=== PATIENT | female | born 1965 | race African-American/Black ===

== ENCOUNTER 2016-05-30 13:31 | Emergency (ER) | payer MEDICAID ==
[~2016-05-30] VITALS: Ht 157.5 cm; Wt 134.3 kg
[~2016-05-30 13:31] MED LIST: ASPIR 8181 MG ORAL; B COMPLEX1 EACH ORAL; COLACE100 MG ORAL; FERATE PO; GABAPENTIN300 MG ORAL; GUAIFENESIN-CO118 ML ORAL; LEVOTHYROXINE175 MCG ORAL; LIPITOR40 MG ORAL; LISINOPRIL10 MG ORAL; NORCO 5-325 TA1 EACH PO; OXYBUTYNIN CHLOR5 M1 PO; PERCOCET 5-3251 EACH PO; PRILOSEC20 MG ORAL; PROZAC40 MG ORAL; SOMA350 MG PO; VICODIN ES 7.51 EACH PO; ZITHROMAX250 MG ORAL
[2016-05-30 14:02] VITALS: BP 146/71
--- NOTE | 2016-05-30 14:04 | Emergency Room Report ---
History of Present Illness General Chief Complaint: Chest Pain Source: Patient Present Illness HPI Patient is a 51-year-old female who presented after increased cough and congestion. The patient gradual onset of symptoms. The patient prior history of hypertension. She states that she's had some voice changes. Patient states she gets sick with similar symptoms every year. She had some nonproductive cough. She reported having some l chest pain with coughing. She denies any fever. She denies any leg swelling.She reports taking ERMIAS inhibitor for her prior nephropathy. Allergies: Coded Allergies: No Known Allergies (Verified Allergy, Mild, 06/06/08) Patient History Past Medical History: see triage record Last Menstrual Period: Jan, 2017 Reviewed Nursing Documentation: PMH: Agreed, PSxH: Agreed Nursing Documentation-PMH Hx Cardiac Problems: Yes - irregular heart beat,CHRONIC PAIN - SIATICA, HYPOTHYROIDSM Hx Hypertension: No - high cholesterol Hx Pacemaker: No Hx Asthma: No Hx COPD: No Hx Diabetes: No Hx Cancer: No Hx Gastrointestinal Problems: Yes Hx Neurological Problems: No Hx Cerebrovascular Accident: No Hx Seizures: No Review of Systems All Other Systems: negative except mentioned in HPI Physical Exam Vital Signs Date Time Temp Pulse Resp B/P Pulse Ox O2 Delivery O2 Flow Rate FiO2 05/30/16 13:45 97.9 64 14 146/71 98 Room Air General Appearance: well appearing, no apparent distress, alert, GCS 15, obese Head: normocephalic, atraumatic ENT: hearing grossly normal, normal voice Neck: full range of motion, supple Respiratory: lungs clear, normal breath sounds, no respiratory distress, speaking full sentences Cardiovascular #1: normal peripheral pulses, regular rate, rhythm, no JVD Gastrointestinal: normal inspection, non tender, soft Musculoskeletal: normal inspection, back normal, digits/nails normal, no calf tenderness Neurologic: normal inspection, alert, responsive, 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 Patient's benign exam and does not appear to require any laboratory testing at this time. The patient showed no signs of angioedema. Patient prior history of hypertension.EKG interpreted by me showed normal sinus rhythm with a rate of [address] or T wave changes.A chest x-ray one view interpreted by me showed normal cardiac size without evident infiltrate or effusion. There is no evident pneumothorax and mediastinum was normal. Patient was offered laboratory testing and she declined. The patient was noted to have no improvement with albuterol treatment. The patient is advised to take ibuprofen for pain. Patient does not appear to have any acute risk factors for PE. The patient's history is consistent with a viral infection. She is given a prescription for cough medication The patient is advised to follow up with primary care doctor in 1-2 days. Patient is advised to return if any worsening condition or if any changes in status that are concerning. EKG Diagnostic Results Rate: normal Rhythm: NSR ST Segments: no acute changes Rhythm Strip Diag. Results EP Interpretation: yes Rhythm: NSR, no PVC's, no ectopy Chest X-Ray Diagnostic Results EP Interpretation: Yes Findings: no consolidation, no effusion, no pneumothorax, no acute cardiopulmonary disease Number of Views: 1 Last Vital Signs Date Time Temp Pulse Resp B/P Pulse Ox O2 Delivery O2 Flow Rate FiO2 05/30/16 13:45 97.9 64 14 146/71 98 Room Air Status: improved Disposition: HOME, SELF-CARE Condition: Stable Scripts D-Methorphan Hb/Prometh Hcl* (PROMETHAZINE-DM SYRUP*) 118 Ml Syrup 5 ML ORAL Q6H Y for For Cough, #100 ML 0 Refills Prov: Amilcar Galan 05/30/16 Amilcar Galan May 30, 2016 14:04
[2016-05-30] MEDS ORDERED: DuoNeb 0.5-3(2.5)mg/3ml neb HHN ONE (14:15)
[2016-05-30] MEDS ORDERED: PROMETHAZINE-D118 ML ORAL (14:31)
[2016-05-30 14:34] VITALS: BP 139/76
[2016-05-30 14:42] VITALS: BP 139/76
--- NOTE | 2016-05-31 10:33 | Diagnostic Imaging Report ---
Indications: Shortness of breath Technique: Portable AP chest Findings: Comparison: 10/26/12 Motion artifact, suboptimal image quality due to body habitus limit evaluation. Cardiac silhouette remains enlarged. Ulnar vasculature remains within normal limits. Visualized portions of lungs and pleura remain clear. No abnormal mediastinal widening. IMPRESSION: No evidence of acute cardiopulmonary disease, limited as described, unchanged. Stable cardiomegaly
--- NOTE | 2016-06-02 03:10 | Cardiology Report ---
APPROVED REPORT EKG Measurement Heart [id number] Normal sinus rhythm Normal ECG
== END 2016-05-30 15:04 | disposition home or self-care (01) ==
LOC: EMR 14:09
DX: J40 Bronchitis, not specified as acute or chronic (principal); J06.9 Acute upper respiratory infection, unspecified; E78.00 Pure hypercholesterolemia, unspecified; G89.29 Other chronic pain; E03.9 Hypothyroidism, unspecified
CPT/HCPCS: 71010; 93005; 94644; 99283; J7620

== ENCOUNTER 2016-06-21 20:53 | Emergency (ER) | payer MEDICAID ==
[~2016-06-21] VITALS: Ht 157.5 cm; Wt 134.3 kg
[~2016-06-21 20:53] MED LIST changes: +PROMETHAZINE-D118 ML ORAL
[2016-06-21 21:10] VITALS: BP 160/80
--- NOTE | 2016-06-21 21:40 | Emergency Room Report ---
History of Present Illness General Chief Complaint: Female Urogenital Problems Source: Patient Present Illness [facility] The patient presents with vaginal bleeding and also some suprapubic pain. This for 17 days and she is passing clots. She feels somewhat dizzy when she stands up. Denies any fevers. The patient had similar in April and was admitted had an ultrasound showed thickening of her uterus. Dr. Cho did a D&C at that time. She's had no period until 17 days ago. She denies having a fibroid. She did not take her medications for pain and suffers from sciatica. She has no dysuria. The back pain is 8/10, aching and chronic. It radiates to her leg. There is no fever, chills, NVD, chest pain, palpitations, dyspnea. She is not depressed at this time. No diabetes. She does suffer from anemia. Allergies: Coded Allergies: No Known Allergies (Verified Allergy, Mild, 06/06/08) Patient History Past Medical History: see triage record Past Surgical History: other - recent d and c Social History: Denies: smoking Social History Narrative here with friend Last Menstrual Period: 06/04/16 Now: No Reviewed Nursing Documentation: PMH: Agreed, PSxH: Agreed Nursing Documentation-PMH Past Medical History: No History, Except For Hx Cardiac Problems: Yes - irregular heart beat,CHRONIC PAIN - SIATICA, HYPOTHYROIDSM Hx Hypertension: No - high cholesterol Hx Pacemaker: No Hx Asthma: No Hx COPD: No Hx Diabetes: No Hx Cancer: No Hx Gastrointestinal Problems: Yes Hx Neurological Problems: No Hx Cerebrovascular Accident: No Hx Seizures: No Review of Systems All Other Systems: negative except mentioned in HPI Physical Exam Vital Signs Date Time Temp Pulse Resp B/P Pulse Ox O2 Delivery O2 Flow Rate FiO2 06/21/16 21:09 98.4 80 16 160/80 100 Room Air Sp02 EP Interpretation: reviewed, normal General Appearance: well appearing, no apparent distress, GCS 15, obese Head: normocephalic, atraumatic Eyes: bilateral eye PERRL, bilateral eye normal inspection ENT: moist mucus membranes Neck: supple Respiratory: chest non-tender, lungs clear, normal breath sounds Cardiovascular #1: regular rate, rhythm Cardiovascular #2: 2+ radial (R) Gastrointestinal: normal inspection, normal bowel sounds, non tender, no mass, non-distended, overweight Genitourinary: no CVA tenderness, other - partially full tampon - no clots Musculoskeletal: gait/station normal, normal range of motion, other - minimal paraspinous spasm Neurologic: alert, oriented x3, grossly normal Psychiatric: anxious Skin: normal inspection, warm/dry Medical Decision Making Diagnostic Impression: Primary Impression: Menorrhagia Qualified Codes: N92.1 - Excessive and frequent menstruation with irregular cycle Additional Impression: Chronic back pain Qualified Codes: M54.40 - Lumbago with sciatica, unspecified side; G89.29 - Other chronic pain ER Course Patient with heavy vaginal bleeding which is irregular. Some sy of significant anemia. Ddx: fibroid, , hormonal imbalance. Recent D and C. Urgent evaluation for sever anemia and source of bleeding. Labs, ultrasound. Patient treated with IV hydration and analgesia. H/H not critically low. U/S with probable fibroid (difficult exam). Discussed with pts PMD. Suggested provera. Patient improved with treatment. Patient stable for outpatient observation and treatment. Laboratory Tests Test 06/21/16 21:53 White Blood Count 10.5 K/UL (4.8-10.8) Red Blood Count 4.26 M/UL (4.20-5.40) Hemoglobin 9.7 G/DL (12.0-16.0) L Hematocrit 32.2 % (37.0-47.0) L Mean Corpuscular Volume 76 FL (80-99) L Mean Corpuscular Hemoglobin 22.8 PG (27.0-31.0) L Mean Corpuscular Hemoglobin Concent 30.2 G/DL (32.0-36.0) L Red Cell Distribution Width 14.2 % (11.6-14.8) Platelet Count 298 K/UL (150-450) Mean Platelet Volume 6.6 FL (6.5-10.1) Neutrophils (%) (Auto) 72.8 % (45.0-75.0) Lymphocytes (%) (Auto) 19.5 % (20.0-45.0) L Monocytes (%) (Auto) 5.2 % (1.0-10.0) Eosinophils (%) (Auto) 1.7 % (0.0-3.0) Basophils (%) (Auto) 0.9 % (0.0-2.0) Urine Color Red Urine Appearance Turbid Urine pH 6.5 (4.5-8.0) Urine Specific [place] 1.015 (1.005-1.035) Urine Protein 4+ (NEGATIVE) H Urine Glucose (UA) Negative (NEGATIVE) Urine Ketones Negative (NEGATIVE) Urine Occult Blood 5+ (NEGATIVE) H Urine Nitrite Negative (NEGATIVE) Urine Bilirubin Negative (NEGATIVE) Urine Urobilinogen 4 MG/DL (0.0-1.0) H Urine Leukocyte Esterase 1+ (NEGATIVE) H Urine RBC Tntc /HPF (0 - 2) H Urine WBC 0 /HPF (0 - 2) Urine Squamous Epithelial Cells None /LPF (NONE/OCC) Urine Bacteria Few /HPF (NONE) Urine HCG, Qualitative Negative Sodium Level 139 mEQ/L (135-145) Potassium Level 3.7 mEQ/L (3.4-4.9) Chloride Level 100 mEQ/L (98-107) Carbon Dioxide Level 23 mEQ/L (20-30) Anion Gap 16 (5-15) H Blood Urea Nitrogen 12 mg/dL (7-23) Creatinine 0.8 mg/dL (0.5-0.9) Estimate Glomerular Filtration Rate > 60 mL/min (>60) Glucose Level 138 mg/dL (74-106) H Calcium Level 8.9 mg/dL (8.6-10.2) Total Bilirubin < 0.2 mg/dL (0.0-1.2) Aspartate Amino Transferase (AST) 12 U/L (5-40) Alanine Aminotransferase (ALT) 8 U/L (3-33) Alkaline Phosphatase 70 U/L (35-104) Total Protein 7.8 g/dL (6.6-8.7) Albumin 3.6 g/dL (3.5-5.2) Globulin 4.2 g/dL Albumin/Globulin Ratio 0.8 (1.0-2.7) L Lipase 31 U/L (< 60) CT/MRI/US Diagnostic Results CT/MRI/US Diagnostic Results : Imaging Test Ordered: vaginal Impression possible fibroid - extremely limited exam due to habitus Last Vital Signs Date Time Temp Pulse Resp B/P Pulse Ox O2 Delivery O2 Flow Rate FiO2 06/21/16 21:09 98.4 80 16 160/80 100 Room Air Status: improved Disposition: HOME, SELF-CARE Condition: Improved Scripts Vit Comb.10/Iron/Fa (VITAFOL-OB CAPLET) 1 Each Tablet 1 EACH PO DAILY, #30 TAB Prov: Mono Bowen M.D. 06/22/16 Medroxyprogesterone Acet* (PROVERA*) 10 Mg Tablet 10 MG ORAL BID, #10 TAB 0 Refills Prov: Mono Bowen M.D. 06/22/16 Mono Bowen M.D. Jun 21, 2016 21:40
[2016-06-21] MEDS ORDERED: Morphine Sulfate 2mg/ml Inj IVP ONE (21:45)
[2016-06-21] MEDS ORDERED: Ketorolac 30mg Inj IV ONE (21:45)
[2016-06-21] MEDS ORDERED: Methocarbamol 500mg tab ORAL ONE (21:45)
[2016-06-21 22:04] LABS: BASOPHILS % (AUTO) 0.9 % (0.0-2.0); EOSINOPHILS % (AUTO) 1.7 % (0.0-3.0); LYMPHOCYTES % (AUTO) 19.5 % (20.0-45.0); MEAN CORPUSCULAR HEMOGLOBIN 22.8 PG (27.0-31.0); MEAN CORPUSCULAR HGB CONC 30.2 G/DL (32.0-36.0); MEAN CORPUSCULAR VOLUME 76 FL (80-99); MEAN PLATELET VOLUME 6.6 FL (6.5-10.1); MONOCYTES % (AUTO) 5.2 % (1.0-10.0); NEUTROPHILS % (AUTO) 72.8 % (45.0-75.0); PLATELET COUNT 298 K/UL (150-450); RED BLOOD COUNT 4.26 M/UL (4.20-5.40); RED CELL DISTRIBUTION WIDTH 14.2 % (11.6-14.8); WHITE BLOOD COUNT 10.5 K/UL (4.8-10.8)
[2016-06-21 22:21] LABS: APPEARANCE,URINE TURBID; KETONES,URINE NEGATIVE (NEGATIVE); LEUKOCYTE ESTERASE ,URINE 1+ (NEGATIVE); NITRITE,URINE NEGATIVE (NEGATIVE); PH,URINE 6.5 (4.5-8.0); PROTEIN,URINE 4+ (NEGATIVE); UROBILINOGEN,URINE 4 MG/DL (0.0-1.0)
[2016-06-21 22:23] LABS: ALANINE AMINOTRANSFERASE 8 U/L (3-33); ALBUMIN/GLOBULIN RATIO 0.8 (1.0-2.7); ANION GAP 16 (5-15); ASPARTATE AMINO TRANSFERASE 12 U/L (5-40); CALCIUM 8.9 mg/dL (8.6-10.2); CARBON DIOXIDE 23 mEQ/L (20-30); CHLORIDE 100 mEQ/L (98-107); CREATININE 0.8 mg/dL (0.5-0.9); GLOMERULAR FILTRATION RATE > 60 mL/min (>60); HEMOLYSIS 0; LIPASE 31 U/L (< 60); POTASSIUM 3.7 mEQ/L (3.4-4.9); SODIUM 139 mEQ/L (135-145); TOTAL PROTEIN 7.8 g/dL (6.6-8.7)
[2016-06-21 22:28] LABS: RBC,URINE TNTC /HPF (0 - 2)
[2016-06-21 22:29] LABS: BACTERIA,URINE FEW /HPF; WBC,URINE 0 /HPF (0 - 2)
[2016-06-22] MEDS ORDERED: medroxyPROGESTERone 10mg tab ORAL STA (01:12)
[2016-06-22] MEDS ORDERED: VITAFOL-OB CAP1 EACH PO (01:24)
[2016-06-22] MEDS ORDERED: PROVERA10 MG ORAL (01:24)
[2016-06-22 01:40] VITALS: BP_SYST 143; BP_SYST 160; BP_DIAS 78; BP_DIAS 80
--- NOTE | 2016-06-22 10:45 | Diagnostic Imaging Report ---
Indication: Vaginal bleeding Technique: Transabdominal and transvaginal images Comparison: 12/21/2005 Findings: Exam is limited due to patient body habitus. Uterus measures 6.6 cm length by 2.9 cm AP. There is a neither ovary could be demonstrated. The endometrial stripe is not well demonstrated. Cervical nabothian cysts are noted. Impression: Very limited exam Nonvisualization of the ovaries. No gross adnexal mass or free fluid Incidental finding cervical nabothian cysts
== END 2016-06-22 01:42 | disposition home or self-care (01) ==
LOC: EMR 22:20
DX: N92.0 Excessive and frequent menstruation with regular cycle (principal); G89.29 Other chronic pain; R42 Dizziness and giddiness; M54.30 Sciatica, unspecified side; E78.00 Pure hypercholesterolemia, unspecified; E03.9 Hypothyroidism, unspecified
CPT/HCPCS: 36415; 76830; 76856; 80053; 81003; 81025; 83690; 85025; 86850; 86900; 86901; 96374; 96375; 99284; J1885; J2270; J2405

== ENCOUNTER 2017-01-08 19:27 | Emergency (ER) | payer MEDICAID ==
[~2017-01-08] VITALS: Ht 157.5 cm; Wt 136.1 kg
[~2017-01-08 19:27] MED LIST changes: +PROVERA10 MG ORAL; +VITAFOL-OB CAP1 EACH PO
[2017-01-08 20:00] VITALS: BP 148/78
[2017-01-08] MEDS ORDERED: ARTIFICIAL TEAR15 ML BOTH EYES (20:28)
[2017-01-08] MEDS ORDERED: CLARITIN-D 241 EACH PO (20:28)
[2017-01-08] MEDS ORDERED: FLONASE ALLERG9.9 ML NS (20:28)
[2017-01-08 20:40] VITALS: BP 148/78
--- NOTE | 2017-01-08 21:02 | Emergency Room Report ---
History of Present Illness General Chief Complaint: Eye Problems Source: Patient Present Illness HPI The patient is a 51-year-old female with a history of environmental allergies presenting for burning and itching of both eyes which began 3 days prior. She is also complaining of nasal congestion. Pain is a 3/10 burning sensation to both eyes. Does not radiate. She has also been having increased tearing from both eyes. She denies any other symptoms including nausea, vomiting, fever, chills, cough Allergies: Coded Allergies: No Known Allergies (Verified Allergy, Mild, 06/06/08) Patient History Past Medical History: see triage record Pertinent Family History: none Last Menstrual Period: 01/07/17 Now: No Reviewed Nursing Documentation: PMH: Agreed, PSxH: Agreed Nursing Documentation-PMH Hx Cardiac Problems: Yes - irregular heart beat,CHRONIC PAIN - SIATICA, HYPOTHYROIDSM Hx Hypertension: No - high cholesterol Hx Pacemaker: No Hx Asthma: No Hx COPD: No Hx Diabetes: No Hx Cancer: No Hx Gastrointestinal Problems: Yes Hx Neurological Problems: Yes - Chronic Nerve Pain Hx Cerebrovascular Accident: No Hx Seizures: No Review of Systems All Other Systems: negative except mentioned in HPI Physical Exam Vital Signs Date Time Temp Pulse Resp B/P (MAP) Pulse Ox O2 Delivery O2 Flow Rate FiO2 01/08/17 19:52 98.6 83 16 148/78 96 Room Air Sp02 EP Interpretation: reviewed, normal General Appearance: no apparent distress, alert, GCS 15, non-toxic Head: normocephalic, atraumatic Eyes: bilateral eye PERRL, bilateral eye EOMI, bilateral eye Scleral Injection ENT: hearing grossly normal, normal pharynx, no angioedema, normal voice, uvula midline, nasal congestion Neck: full range of motion, supple/symm/no masses Respiratory: chest non-tender, lungs clear, normal breath sounds, speaking full sentences Musculoskeletal: back normal, gait/station normal, normal range of motion, non- tender Neurologic: alert, oriented x3, responsive, motor strength/tone normal, sensory intact, speech normal Psychiatric: judgement/insight normal, memory normal, mood/affect normal, no suicidal/homicidal ideation Skin: normal color, no rash, warm/dry, well hydrated Medical Decision Making PA Attestation Dr. Galan is my supervising physician. Patient management was discussed with my supervising physician Diagnostic Impression: Primary Impression: Allergic conjunctivitis Qualified Codes: H10.13 - Acute atopic conjunctivitis, bilateral Additional Impression: Environmental allergies ER Course The patient is a 51-year-old female presenting for eye itching and redness Differential diagnoses considered but not limited to allergic conjunctivitis, bacterial conjunctivitis, viral conjunctivitis, blepharitiis, allergies Physical exam: Afebrile. No apparent distress HEENT exam reveals bilateral conjunctival injection with tearing. No crusting of the eyelids. No discharge. There is nasal congestion Otherwise exam is unremarkable The patient be discharged with prescription for Claritin, Flonase, and artificial tears. ER precautions are given Last Vital Signs Date Time Temp Pulse Resp B/P (MAP) Pulse Ox O2 Delivery O2 Flow Rate FiO2 01/08/17 20:00 98.6 16 148/78 96 Room Air 01/08/17 19:52 83 Status: improved Disposition: HOME, SELF-CARE Condition: Improved Scripts Dextran 70/Hypromellose (ARTIFICIAL TEARS EYE DROPS*) 15 Ml Drops 1 DROP BOTH EYES PRN, #15 ML 0 Refills Prov: KATELYNN NAJERA 01/08/17 Fluticasone Propionate (Flonase Allergy Relief) 9.9 Ml [place].susp 1 ML NS DAILY, #10 ML Prov: KATELYNN NAJERA.A. 01/08/17 Loratadine/Pseudoephedrine (CLARITIN-D 24 HOUR TABLET) 1 Each Tab.er.24h 1 TAB PO DAILY, #30 TAB Prov: KATELYNN NAJERA.A. 01/08/17 Referrals: NON PHYSICIAN (PCP) Patient Instructions: Allergies Additional Instructions: I discussed my findings with the patient. All questions and concerns have been answered. Treatment and medication compliance have been addressed. I advised the patient that they need to follow up with PMD in 3-5 days. Return to ED if symptoms worsen, new symptoms arise, or if needed for any reason. Patient verbalized understanding of discharge instructions. KATELYNN NAJERA Jan 08, 2017 21:02
== END 2017-01-08 20:45 | disposition home or self-care (01) ==
LOC: EMR 20:40
DX: H10.13 Acute atopic conjunctivitis, bilateral (principal); E03.9 Hypothyroidism, unspecified; G89.29 Other chronic pain
CPT/HCPCS: 99284

== ENCOUNTER 2017-05-19 14:59 | Emergency (ER) | payer MEDICAID ==
[~2017-05-19] VITALS: Ht 157.5 cm; Wt 145.1 kg
[~2017-05-19 14:59] MED LIST changes: +ARTIFICIAL TEAR15 ML BOTH EYES; +CLARITIN-D 241 EACH PO; +FLONASE ALLERG9.9 ML NS
[2017-05-19] MEDS ORDERED: Lidocaine 1% 10mg/ml/Epi 0.005mg/ml 30ml vial INJ ONE (16:00)
[2017-05-19] MEDS ORDERED: BACTRIM DS TAB1 EAC1 ORAL (16:57)
[2017-05-19] MEDS ORDERED: CEPHALEXIN500 MG ORAL (16:57)
[2017-05-19] MEDS ORDERED: IBUPROFEN600 MG ORAL (16:57)
[2017-05-19 17:08] VITALS: BP 152/76
[2017-05-19 17:09] VITALS: BP 152/76
--- NOTE | 2017-05-19 18:10 | Emergency Room Report ---
History of Present Illness General Chief Complaint: Skin Rash/Abscess Source: Patient Present Illness HPI The patient is a 52-year-old female presenting for 2 complaints including left shoulder pain and possible infection of her right thigh. She states that she fell 2 months ago onto her left shoulder and did not seek any medical attention. She states the pain has continued and is a 6/10 dull ache. Worse with movement. She states that it is difficult for her to raise her left arm. She denies previous injury to the area. She denies any numbness or tingling. She noticed a bump on her right inner thigh 3 days ago. She states that this has been growing in size. It is tender described as a 5/10 dull ache. Worse with touch. She denies other symptoms including fever, chills, numbness or tingling Allergies: Coded Allergies: No Known Allergies (Verified Allergy, Mild, 06/06/08) Patient History Past Medical History: see triage record Pertinent Family History: none Last Menstrual Period: 04/18/17 Now: No Reviewed Nursing Documentation: PMH: Agreed, PSxH: Agreed Nursing Documentation-PMH Hx Hypertension: No - high cholesterol Hx Pacemaker: No Hx Asthma: No Hx COPD: No Hx Diabetes: No Hx Cancer: No Hx Gastrointestinal Problems: Yes Hx Neurological Problems: Yes - Chronic Nerve Pain Hx Cerebrovascular Accident: No Hx Seizures: No Review of Systems All Other Systems: negative except mentioned in HPI Physical Exam Vital Signs Date Time Temp Pulse Resp B/P (MAP) Pulse Ox O2 Delivery O2 Flow Rate FiO2 05/19/17 15:16 97.7 75 18 149/83 96 Room Air Sp02 EP Interpretation: reviewed, normal General Appearance: no apparent distress, alert, GCS 15, non-toxic Head: normocephalic, atraumatic Eyes: bilateral eye normal inspection, bilateral eye PERRL ENT: hearing grossly normal, normal pharynx, no angioedema, normal voice Neck: full range of motion, supple/symm/no masses Respiratory: chest non-tender, lungs clear, normal breath sounds, speaking full sentences Musculoskeletal: back normal, gait/station normal, normal range of motion, decreased range of motion - L shoulder unable to flex past 90, tender - TTP to the L anterior and lateral deltoids Neurologic: alert, oriented x3, responsive, motor strength/tone normal, sensory intact, speech normal Psychiatric: judgement/insight normal, memory normal, mood/affect normal, no suicidal/homicidal ideation Skin: rash - R medial thigh has 2cm indurated, tender lesion with central fluctuance Lymphatic: no adenopathy Procedures Incision and Drainage Incision and Drainage : Consent: Verbal Site: R thigh Blade Size: 11 I & D Procedure: betadine prep, sterile drapes applied Wound Location: lower extremity Wound's Depth, Shape: superficial Wound Length (cm): 1 Wound Explored: clean Irrigated w/ Saline (ccs): 50 Anesthesia: 1% Lidocaine, Lidocaine w/ Epi Volume Anesthetic (ccs): 3 Splint Applied?: No Sling Applied?: No Patient Tolerated: Well Complications: None Medical Decision Making PA Attestation Dr. Galan is my supervising physician. Patient management was discussed with my supervising physician Diagnostic Impression: Primary Impression: Abscess Additional Impression: Shoulder pain, left Qualified Codes: M25.512 - Pain in left shoulder ER Course The patient is a 52-year-old female presenting for 2 complaints including left shoulder pain and possible infection of her right thigh Ddx considered include but not limited to sprain/strain, fracture, contusion Differential diagnoses considered but not limited to: abscess, cellulitis, insect bite PE: afebrile. NAD R medial thigh has 2cm indurated, tender lesion with central fluctuance Left shoulder: Unable to flex past 90. Tender to palpation over anterior and lateral deltoids. No deformity. No ecchymosis. Full active range of motion of the elbow and hand is intact X-ray of the left shoulder unremarkable Betadine prep was used to clean the skin and surrounding area. One percent lidocaine without epinephrine was used to anesthetize the are of planned incision. A #11 blade was used to make an incision in the central area of fluctuance approximately 1/3 the size of the diameter of the abscess. Once the incision was made, purulent material was expressed with blood. Blunt dissection was then used to release loculations and expressed more purulent material. Once only blood appeared to be expressed from the incision, normal saline was used to irrigate the inside of the abscess. The wound was then cleaned and sterile dressing applied. The patient is given first dose of antibiotics here and will be given prescription for her abscess. She was told that she will likely need an MRI for left shoulder pain as it has now been 2 months since the injury ER precautions given Other X-Ray Diagnostic Results Other X-Ray Diagnostic Results : X-Ray ordered: L shoulder # of Views/Limited Vs Complete: 3 View Indication: Pain EP Interpretation: Yes SHELLEY Xray: Interpretation reviewed, by supervising MD, and agrees with findings. Interpretation: no dislocation, no soft tissue swelling, no fractures Impression: No acute disease Electronically Signed by: Leander Najera PA-C Last Vital Signs Date Time Temp Pulse Resp B/P (MAP) Pulse Ox O2 Delivery O2 Flow Rate FiO2 05/19/17 17:09 97.7 72 18 152/76 97 Room Air Status: improved Disposition: HOME, SELF-CARE Condition: Improved Scripts Ibuprofen* (MOTRIN*) 600 Mg Tablet 600 MG ORAL Q8H Y for For Pain, #30 TAB 0 Refills Prov: LEANDER NAJERA.A. 05/19/17 Trimethoprim/Sulfamethoxazole 160/800* (BACTRIM DS TABLET*) 1 Each Tablet 1 TAB ORAL TWICE A DAY, #14 TAB Prov: LEANDER NAJERA.A. 05/19/17 Cephalexin* (KEFLEX*) 500 Mg Capsule 500 MG ORAL EVERY 12 HOURS, #14 CAP 0 Refills Prov: LEANDER NAJERA P.A. 05/19/17 Referrals: NON PHYSICIAN (PCP) Patient Instructions: Shoulder Pain, Abscess Additional Instructions: I discussed my findings with the patient. All questions and concerns have been answered. Treatment and medication compliance have been addressed. I advised the patient that they need to follow up with PMD in 3-5 days. Return to ED if symptoms worsen, new symptoms arise, or if needed for any reason. Patient verbalized understanding of discharge instructions. LEANDER NAJERA May 19, 2017 18:10
--- NOTE | 2017-05-20 10:42 | Diagnostic Imaging Report ---
Indication: left shoulder pain Findings: 3 views of the left shoulder were obtained. Alignment of the left shoulder is normal. No acute fracture is identified. Soft tissues are unremarkable. Impression: No acute injury
== END 2017-05-19 17:12 | disposition home or self-care (01) ==
LOC: EMR 15:20
DX: L02.415 Cutaneous abscess of right lower limb (principal); M25.512 Pain in left shoulder
CPT/HCPCS: 10060; 99284

== ENCOUNTER 2017-09-25 13:30 | Emergency (ER) | payer MEDICAID ==
[~2017-09-25] VITALS: Ht 157.5 cm; Wt 142.9 kg
[~2017-09-25 13:30] MED LIST changes: +BACTRIM DS TAB1 EAC1 ORAL; +CEPHALEXIN500 MG ORAL; +IBUPROFEN600 MG ORAL
[2017-09-25 13:43] VITALS: BP 139/83
[2017-09-25] MEDS ORDERED: Ketorolac 60mg Inj IM ONE (14:00)
--- NOTE | 2017-09-25 14:31 | Emergency Room Report ---
History of Present Illness General Chief Complaint: Multiple Trauma/Fall Source: Patient Present Illness HPI 52-year-old female presents emergency department complaining of 10 out of 10 in severity localized left hip, left upper gluteal as well as left knee pain status post mechanical fall last night patient denies dizziness she denies hitting her head she denies midline neck or back pain. She denies loss of consciousness. Denies numbness tingling or loss of sensation or gross motor movements of the extremities, incontinence of bowel or bladder. Denies CP, Palpitations, LOC, AMS, dizziness, Changes in Vision, weakness or a sudden severe headache. Patient reports past medical history of anemia and sciatica. Allergies: Coded Allergies: No Known Allergies (Verified Allergy, Mild, 06/06/08) Patient History Past Medical History: see triage record, other - sciatica hx, anemia hx Pertinent Family History: none Last Menstrual Period: 09/04/17 Nursing Documentation-PMH Hx Hypertension: No - high cholesterol Hx Pacemaker: No Hx Asthma: No Hx COPD: No Hx Diabetes: No Hx Cancer: No Hx Gastrointestinal Problems: Yes Hx Neurological Problems: Yes - Chronic Nerve Pain Hx Cerebrovascular Accident: No Hx Seizures: No Review of Systems All Other Systems: negative except mentioned in HPI Physical Exam Vital Signs Date Time Temp Pulse Resp B/P (MAP) Pulse Ox O2 Delivery O2 Flow Rate FiO2 09/25/17 13:39 98.0 92 19 139/83 95 Room Air 98.1 Medical Decision Making PA Attestation Dr. Perez is my supervising Physician whom patient management has been discussed with. Diagnostic Impression: Primary Impression: Contusion, hip and thigh Qualified Codes: S70.02XA - Contusion of left hip, initial encounter; S70.12XA - Contusion of left thigh, initial encounter Additional Impressions: Contusion of knee, right Qualified Codes: S80.01XA - Contusion of right knee, initial encounter Knee pain, left Qualified Codes: M25.562 - Pain in left knee Sciatic nerve pain Qualified Codes: M54.32 - Sciatica, left side ER Course 52-year-old female presents emergency department complaining of 10 out of 10 in severity localized left hip, left upper gluteal as well as left knee pain status post mechanical fall last night patient denies dizziness she denies hitting her head she denies midline neck or back pain. She denies loss of consciousness. Denies numbness tingling or loss of sensation or gross motor movements of the extremities, incontinence of bowel or bladder. Denies CP, Palpitations, LOC, AMS, dizziness, Changes in Vision, weakness or a sudden severe headache. Patient reports past medical history of anemia and sciatica. Ddx considered but are not limited to Fracture, dislocation, contusion, Sprain/ Strain/Spasm, Vital signs: are WNL, pt. is afebrile H&PE are most consistent with musculoskeletal injury will perform imaging to r/ o fractures/dislocations. ORDERS: - X-ray Left knee and Left Hip - negative for fx, Dislocation, or significant soft tissue injury, per preliminary read in ED, and signed by SHELLEY Parsons, my supervising physician has reviewed, and agrees with my interpretation. ED INTERVENTIONS: - Toradol IM DISCHARGE: At this time pt. is stable for d/c to home. Will provide printed patient care instructions, and any necessary prescriptions. Care plan and follow up instructions have been discussed with the patient prior to discharge. Other X-Ray Diagnostic Results Other X-Ray Diagnostic Results #1: X-Ray ordered: Left Knee # of Views/Limited Vs Complete: 3 View Indication: Pain EP Interpretation: Yes SHELLEY Xray: Interpretation reviewed, by supervising MD, and agrees with findings. Interpretation: no dislocation, no soft tissue swelling, no fractures, other - arthritic changes ntoed Impression: No acute disease Electronically Signed by: Emani Parsons PA-C Other X-Ray Diagnostic Results #2: X-Ray ordered: Left Hip 2 views # of Views/Limited Vs Complete: 2 View Indication: Pain EP Interpretation: Yes SHELLEY Xray: Interpretation reviewed, by supervising MD, and agrees with findings. Interpretation: no dislocation, no soft tissue swelling, no fractures, other - Arthritic changes Impression: No acute disease Electronically Signed by: Emani Parsons PA-C Last Vital Signs Date Time Temp Pulse Resp B/P (MAP) Pulse Ox O2 Delivery O2 Flow Rate FiO2 09/25/17 14:10 98.1 09/25/17 13:43 92 19 139/83 95 Room Air Disposition: HOME, SELF-CARE Condition: Stable Scripts Acetaminophen* (TYLENOL EXTRA STRENGTH*) 500 Mg Tablet 500 MG ORAL Q6H, #20 TAB 0 Refills Prov: Emani Parsons 09/25/17 Lidocaine (Lidoderm) 1 Each Adh..patch 1 PATCH TOPIC DAILY, #30 PATCH 0 Refills Patch(es) may remain in place for up to 12 hours in any 24-hour period. Prov: Emani Parsons 09/25/17 Referrals: NON PHYSICIAN (PCP) Patient Instructions: Contusion, [id number], Sciatica, [id number] Additional Instructions: Take medications as directed. Follow up with a Primary Care Provider in 3-5 days, even if your symptoms have resolved. --Please review list of primary care clinics, if you do not already have a primary care provider Return sooner to ED if new symptoms occur, or current symptoms become worse. Do not drink alcohol, drive, or operate heavy machinery while taking Robaxin as this may cause drowsiness. - Please note that this Emergency Department Report was dictated using [employer]iotherapist's assistant technology software, occasionally this can lead to erroneous entry secondary to interpretation by the dictation equipment. Emani Parsons Sep 25, 2017 14:31
[2017-09-25] MEDS ORDERED: TYLENOL EXTRA500 MG ORAL (15:25)
[2017-09-25] MEDS ORDERED: LIDODERM700 M1 TOPIC (15:25)
--- NOTE | 2017-09-25 15:27 | Diagnostic Imaging Report ---
Indication: Pain, status post fall Technique: 2 views of the left hip Comparison: none Findings: Body habitus somewhat limits evaluation. No definite acute fractures. No dislocations. Joint spaces are preserved. Impression: Limited. No definite acute bony trauma Consider cross-sectional imaging if there is high clinical suspicion as nondisplaced fractures can easily be occult on plain radiographs
[2017-09-25 15:44] VITALS: BP 139/83
--- NOTE | 2017-09-25 15:45 | Diagnostic Imaging Report ---
Indication: Knee pain, status post fall Technique: 3 views of the left knee Comparison: None Findings: No suprapatellar effusion. No acute fractures. No dislocations. There are superior and inferior pole patellar osteophytes. The joint spaces are preserved Impression: No acute process
== END 2017-09-25 15:45 | disposition home or self-care (01) ==
LOC: EMR 14:10
DX: S70.02XA Contusion of left hip, initial encounter (principal); S80.01XA Contusion of right knee, initial encounter; W19.XXXA Unspecified fall, initial encounter; Y92.9 Unspecified place or not applicable; M54.32 Sciatica, left side
CPT/HCPCS: 73502; 96372; 99284

== ENCOUNTER 2018-01-06 08:35 | Emergency (ER) | payer MEDICAID ==
[~2018-01-06] VITALS: Ht 157.5 cm; Wt 136.1 kg
[~2018-01-06 08:35] MED LIST changes: +LIDODERM700 M1 TOPIC; +TYLENOL EXTRA500 MG ORAL
[2018-01-06 09:00] VITALS: BP 161/80
[2018-01-06 10:33] LABS: APPEARANCE,URINE CLEAR; BILIRUBIN, URINE NEGATIVE (NEGATIVE); GLUCOSE, URINE (UA) NEGATIVE (NEGATIVE); KETONES,URINE NEGATIVE (NEGATIVE); LEUKOCYTE ESTERASE ,URINE 1+ (NEGATIVE); NITRITE,URINE NEGATIVE (NEGATIVE); PH,URINE 6 (4.5-8.0); PROTEIN,URINE 2+ (NEGATIVE); UROBILINOGEN,URINE 1 MG/DL (0.0-1.0)
[2018-01-06 10:35] LABS: BASOPHILS % (AUTO) 0.7 % (0.0-2.0); EOSINOPHILS % (AUTO) 7.1 % (0.0-3.0); HEMATOCRIT 37.3 % (37.0-47.0); HEMOGLOBIN 11.3 G/DL (12.0-16.0); LYMPHOCYTES % (AUTO) 21.5 % (20.0-45.0); MEAN CORPUSCULAR VOLUME 75 FL (80-99); MONOCYTES % (AUTO) 4.4 % (1.0-10.0); NEUTROPHILS % (AUTO) 66.3 % (45.0-75.0); PLATELET COUNT 316 K/UL (150-450); RED BLOOD COUNT 4.97 M/UL (4.20-5.40); RED CELL DISTRIBUTION WIDTH 12.8 % (11.6-14.8); WHITE BLOOD COUNT 7.2 K/UL (4.8-10.8)
[2018-01-06 10:41] LABS: COLOR,URINE YELLOW
[2018-01-06 10:56] LABS: ANION GAP 8 mmol/L (5-15); BLOOD UREA NITROGEN 12 mg/dL (7-18); CARBON DIOXIDE 29 MMOL/L (21-32); CHLORIDE 102 MMOL/L (98-107); CREATININE 0.9 MG/DL (0.55-1.30); POTASSIUM 4.1 MMOL/L (3.5-5.1); SODIUM 138 MMOL/L (136-145)
[2018-01-06 11:07] LABS: ALANINE AMINOTRANSFERASE 18 U/L (12-78); ALBUMIN 3.1 G/DL (3.4-5.0); ALBUMIN/GLOBULIN RATIO 0.7 (1.0-2.7); ALKALINE PHOSPHATASE 94 U/L (46-116); ASPARTATE AMINO TRANSFERASE 13 U/L (15-37); BILIRUBIN,TOTAL 0.3 MG/DL (0.2-1.0); CKMB 0.6 NG/ML (0.0-3.6); CREATINE KINASE 86 U/L (26-308)
--- NOTE | 2018-01-06 11:38 | Diagnostic Imaging Report ---
Indication: Left leg swelling Technique: Grayscale and duplex images of the left lower extremity veins Comparison: none Findings: Technologist reports exam is technically difficult due to body habitus. On the left, grayscale and duplex images demonstrate no evidence of intraluminal thrombus. Normal phasic Doppler waveforms, demonstrating normal augmentation response and no evidence of valvular insufficiency. There is normal compressibility of all the deep veins Downstream greater saphenous vein is patent. Impression: Negative for evidence of left lower extremity deep venous thrombosis
--- NOTE | 2018-01-06 11:40 | Diagnostic Imaging Report ---
Indication: Chest pain Technique: One view of the chest Comparison: 05/30/2016 Findings: The heart is enlarged. Lungs and pleural spaces are clear. No significant interim change Impression: Cardiomegaly. No acute process
--- NOTE | 2018-01-06 12:49 | Emergency Room Report ---
History of Present Illness General Chief Complaint: General Complaint Source: Patient, Medical Record Present Illness HPI This patient states that she has generalized weakness. The patient states she had an injury in her left leg in September. She states that she continues to have pain and swelling in her left leg. She states she was seen here and underwent multiple x-rays. She states that since that time she has put more pressure on her right leg and so has been having right leg pain. She went to acupuncture 3 days ago for her chronic pain and states that she has had no relief. She denies recent illness. She denies fever or chills. She denies nausea or vomiting. She has no other complaints. Allergies: Coded Allergies: No Known Allergies (Verified Allergy, Mild, 06/06/08) Patient History Past Medical History: see triage record, other - chronic pain, HLP Social History: Denies: smoking, alcohol use, drug use Last Menstrual Period: 9-11 Now: No Reviewed Nursing Documentation: PMH: Agreed; PSxH: Agreed Nursing Documentation-PMH Past Medical History: No History, Except For Hx Hypertension: No - high cholesterol Hx Pacemaker: No Hx Asthma: No Hx COPD: No Hx Diabetes: No Hx Cancer: No Hx Gastrointestinal Problems: Yes Hx Neurological Problems: Yes - Chronic Nerve Pain Hx Cerebrovascular Accident: No Hx Seizures: No Review of Systems All Other Systems: negative except mentioned in HPI Physical Exam Vital Signs Date Time Temp Pulse Resp B/P (MAP) Pulse Ox O2 Delivery O2 Flow Rate FiO2 01/06/18 08:44 98.4 81 18 142/85 98 Room Air 98.4 Sp02 EP Interpretation: reviewed, normal General Appearance: no apparent distress, alert, GCS 15, non-toxic Head: normocephalic, atraumatic Eyes: bilateral eye normal inspection, bilateral eye PERRL ENT: hearing grossly normal, normal pharynx, no angioedema, normal voice Neck: full range of motion, supple/symm/no masses Respiratory: chest non-tender, lungs clear, normal breath sounds, no respiratory distress, no retraction, no accessory muscle use, speaking full sentences Cardiovascular #1: regular rate, rhythm, no edema Gastrointestinal: normal bowel sounds, non tender, soft, non-distended, no guarding, no rebound Rectal: deferred Musculoskeletal: back normal, normal range of motion, swelling - L. ankle swelling. TTP over L. calve. No erythema. Neurologic: alert, oriented x3, responsive, motor strength/tone normal, sensory intact, speech normal Psychiatric: judgement/insight normal, memory normal, mood/affect normal, no suicidal/homicidal ideation Skin: normal color, no rash, warm/dry, well hydrated Medical Decision Making Diagnostic Impression: Primary Impression: Myalgia ER Course This patient is morbidly obese. Likely this is contributing to the patient's chronic pain. The patient did have some swelling in her left lower extremity, so I did obtain a venous ultrasound to rule out DVT and this was negative. Laboratory workup was also unremarkable. Specifically, no elevation in CK. Overall, I did not identify any emergency medical condition. The patient is instructed to follow-up closely with her primary care physician. She is given return precautions and follow-up instructions. Laboratory Tests Test 01/06/18 10:00 White Blood Count 7.2 K/UL (4.8-10.8) Red Blood Count 4.97 M/UL (4.20-5.40) Hemoglobin 11.3 G/DL (12.0-16.0) L Hematocrit 37.3 % (37.0-47.0) Mean Corpuscular Volume 75 FL (80-99) L Mean Corpuscular Hemoglobin 22.8 PG (27.0-31.0) L Mean Corpuscular Hemoglobin Concent 30.4 G/DL (32.0-36.0) L Red Cell Distribution Width 12.8 % (11.6-14.8) Platelet Count 316 K/UL (150-450) Mean Platelet Volume 6.4 FL (6.5-10.1) L Neutrophils (%) (Auto) 66.3 % (45.0-75.0) Lymphocytes (%) (Auto) 21.5 % (20.0-45.0) Monocytes (%) (Auto) 4.4 % (1.0-10.0) Eosinophils (%) (Auto) 7.1 % (0.0-3.0) H Basophils (%) (Auto) 0.7 % (0.0-2.0) Urine Color Yellow Urine Appearance Clear Urine pH 6 (4.5-8.0) Urine Specific Byers 1.015 (1.005-1.035) Urine Protein 2+ (NEGATIVE) H Urine Glucose (UA) Negative (NEGATIVE) Urine Ketones Negative (NEGATIVE) Urine Blood Negative (NEGATIVE) Urine Nitrite Negative (NEGATIVE) Urine Bilirubin Negative (NEGATIVE) Urine Urobilinogen 1 MG/DL (0.0-1.0) H Urine Leukocyte Esterase 1+ (NEGATIVE) H Urine RBC 0-2 /HPF (0 - 2) Urine WBC 2-4 /HPF (0 - 2) Urine Squamous Epithelial Cells Occasional /LPF Urine Bacteria Occasional /HPF (NONE) Sodium Level 138 MMOL/L (136-145) Potassium Level 4.1 MMOL/L (3.5-5.1) Chloride Level 102 MMOL/L (98-107) Carbon Dioxide Level 29 MMOL/L (21-32) Anion Gap 8 mmol/L (5-15) Blood Urea Nitrogen 12 mg/dL (7-18) Creatinine 0.9 MG/DL (0.55-1.30) Estimate Glomerular Filtration Rate > 60 mL/min (>60) Glucose Level 107 MG/DL (74-106) H Calcium Level 9.0 MG/DL (8.5-10.1) Total Bilirubin 0.3 MG/DL (0.2-1.0) Aspartate Amino Transferase (AST) 13 U/L (15-37) L Alanine Aminotransferase (ALT) 18 U/L (12-78) Alkaline Phosphatase 94 U/L (46-116) Total Creatine Kinase 86 U/L (26-308) Creatine Kinase MB 0.6 NG/ML (0.0-3.6) Creatine Kinase MB Relative Index 0.6 Troponin I 0.008 ng/mL (0.000-0.056) Total Protein 7.8 G/DL (6.4-8.2) Albumin 3.1 G/DL (3.4-5.0) L Globulin 4.7 g/dL Albumin/Globulin Ratio 0.7 (1.0-2.7) L Urine Opiates Screen Negative (NEGATIVE) Urine Barbiturates Screen Negative (NEGATIVE) Phencyclidine (PCP) Screen Negative (NEGATIVE) Urine Amphetamines Screen Negative (NEGATIVE) Urine Benzodiazepines Screen Negative (NEGATIVE) Urine Cocaine Screen Negative (NEGATIVE) Urine Marijuana (THC) Screen Negative (NEGATIVE) EKG Diagnostic Results Rate: normal Rhythm: NSR ST Segments: no acute changes Rhythm Strip Diag. Results EP Interpretation: yes Rate: 60's Rhythm: NSR, no PVC's, no ectopy Chest X-Ray Diagnostic Results Chest X-Ray Diagnostic Results : Chest X-Ray Ordered: Yes # of Views/Limited/Complete: 1 View Indication: Other EP Interpretation: No Interpretation: no consolidation, no effusion, no pneumothorax, no acute cardiopulmonary disease Impression: No acute disease Electronically Signed by: Brenda CT/MRI/US Diagnostic Results CT/MRI/US Diagnostic Results : Imaging Test Ordered: LLE US Impression No DVT Last Vital Signs Date Time Temp Pulse Resp B/P (MAP) Pulse Ox O2 Delivery O2 Flow Rate FiO2 01/06/18 09:00 70 19 161/80 100 Room Air 01/06/18 08:44 98.4 98.4 Status: improved Disposition: HOME, SELF-CARE Condition: Improved Referrals: [facility],REF (PCP) Tahira Perez DO Jan 06, 2018 12:49
[2018-01-06] MEDS ORDERED: Meclizine 25mg tab ORAL ONE ×2 (13:15→14:45)
[2018-01-06] MEDS ORDERED: Ketorolac 30mg Inj IV ONE (14:45)
[2018-01-06] MEDS ORDERED: TransDerm Scop 1mg/72HR Patch TDERMAL ONE (14:45)
[2018-01-06 15:30] VITALS: BP 149/77
[2018-01-06] MEDS ORDERED: TRANSDERM-SCOP1.5 MG TD (15:30)
[2018-01-06] MEDS ORDERED: MECLIZINE HCL25 MG ORAL (15:30)
--- NOTE | 2018-01-07 19:06 | Cardiology Report ---
APPROVED REPORT EKG Measurement Heart [id number] Normal sinus rhythm Normal ECG
== END 2018-01-06 15:35 | disposition home or self-care (01) ==
LOC: EMR 10:32 → CANBEDREQ 15:28 → EMR 15:35
DX: M79.10 Myalgia, unspecified site (principal); E78.00 Pure hypercholesterolemia, unspecified; G89.29 Other chronic pain; E66.01 Morbid (severe) obesity due to excess calories; Z68.43 Body mass index [BMI] 50.0-59.9, adult
CPT/HCPCS: 36415; 71045; 80053; 80307; 81003; 82550; 82553; 84484; 85025; 93005; 93971; 96361; 96374; 99284; J1885

== ENCOUNTER 2019-05-06 19:36 | Emergency (ER) | payer OTHER ==
[~2019-05-06] VITALS: Ht 157.5 cm; Wt 145.1 kg
[~2019-05-06 19:36] MED LIST changes: +MECLIZINE HCL25 MG ORAL; +PERCOCET 7.5-31 EACH ORAL; +TRANSDERM-SCOP1.5 MG TD
[2019-05-06 20:10] VITALS: BP 124/71
[2019-05-06] MEDS ORDERED: oxyCODONE HCL/Acetaminophen 5/325mg ORAL ONE (20:15)
[2019-05-06] MEDS ORDERED: IBUPROFEN600 MG ORAL (20:17)
--- NOTE | 2019-05-06 20:17 | Emergency Room Report ---
History of Present Illness General Chief Complaint: Back Pain-No Injury Source: Patient Present Illness HPI 54-year-old morbidly obese female with history of chronic sciatic and low back pain here requesting refill of Percocet. Patient reports that she is in the process of changing insurance x3 months and has been getting Percocet from different facilities. Reports that before change of insurance her primary doctor used to give it to her regular basis however lately she has been refusing to do so until patient gets MRI done. Patient has been refusing to get MRI done due to anxiety. Patient got MRI done and was evaluated 4 days ago. Patient reports that she has an upcoming appointment with a new primary care provider with [facility] May 09 and is requesting refill of Percocet until then. Patient keeps saying that we are obligated to give it to her until she gets to see primary care and pain management. Patient has never been seen by pain management. Patient also has her 11-year-old daughters with her here and keeps using drug-seeking behavior in front of her kids. Talks in a condescending manner, and when I informed her that we cannot give her any narcotics at this time due to to her chronic pain and need for pain management as well as drug-seeking behavior patient asks to speak to a doctor as this not want to talk to the physician cafe assistant. Allergies: Coded Allergies: No Known Allergies (Verified Allergy, Mild, 06/06/08) Patient History Past Medical History: see triage record Past Surgical History: unable to obtain Pertinent Family History: none Last Menstrual Period: NA Now: No : 7 Para: 4 Immunizations: UTD Reviewed Nursing Documentation: PMH: Agreed; PSxH: Agreed Nursing Documentation-PMH Past Medical History: No History, Except For Hx Hypertension: No - high cholesterol Hx Pacemaker: No Hx Asthma: No Hx COPD: No Hx Diabetes: No Hx Cancer: No Hx Gastrointestinal Problems: Yes Hx Neurological Problems: Yes - Chronic Nerve Pain Hx Cerebrovascular Accident: No Hx Seizures: No Review of Systems All Other Systems: negative except mentioned in HPI Physical Exam Vital Signs Date Time Temp Pulse Resp B/P (MAP) Pulse Ox O2 Delivery O2 Flow Rate FiO2 05/06/19 19:48 98.1 91 18 124/71 (88) 94 Room Air Sp02 EP Interpretation: reviewed, normal General Appearance: no apparent distress, alert, GCS 15, non-toxic Head: normocephalic, atraumatic Eyes: bilateral eye normal inspection, bilateral eye PERRL ENT: hearing grossly normal, normal pharynx, no angioedema, normal voice Neck: full range of motion, supple/symm/no masses Respiratory: chest non-tender, lungs clear, normal breath sounds, speaking full sentences Cardiovascular #1: regular rate, rhythm, no edema Gastrointestinal: normal bowel sounds, non tender, soft, non-distended, no guarding, no rebound Rectal: deferred Genitourinary: no CVA tenderness Musculoskeletal: back normal Neurologic: alert, motor strength/tone normal, oriented x3, sensory intact, responsive, speech normal Psychiatric: other - Drug-seeking behavior Skin: no rash Lymphatic: no adenopathy Medical Decision Making PA Attestation All my diagnosis and treatment plans were reviewed ad discussed with my supervising physician Dr. Hinojosa Diagnostic Impression: Primary Impression: Chronic back pain Additional Impression: Drug-seeking behavior ER Course 54-year-old morbidly obese female with history of chronic sciatic and low back pain here requesting refill of Percocet. Patient reports that she is in the process of changing insurance x3 months and has been getting Percocet from different facilities. Reports that before change of insurance her primary doctor used to give it to her regular basis however lately she has been refusing to do so until patient gets MRI done. Patient has been refusing to get MRI done due to anxiety. Patient got MRI done and was evaluated 4 days ago. Patient reports that she has an upcoming appointment with a new primary care provider with [facility] May 09 and is requesting refill of Percocet until then. Patient keeps saying that we are obligated to give it to her until she gets to see primary care and pain management. Patient has never been seen by pain management. Patient also has her 11-year-old daughters with her here and keeps using drug-seeking behavior in front of her kids. Talks in a condescending manner, and when I informed her that we cannot give her any narcotics at this time due to to her chronic pain and need for pain management as well as drug-seeking behavior patient asks to speak to a doctor as this not want to talk to the physician cafe assistant. Ddx considered but are not limited to: Malingering, drug-seeking behavior, chronic back pain Vital signs: are WNL, pt. is afebrile H&PE are most consistent with: Chronic back pain, drug-seeking behavior ORDERS: Motrin ED INTERVENTIONS: 1 dose of Percocet 5 p.o. here, patient wanted to take at home however nurse Myra make sure that patient takes it here in the ED. My supervising physician also informed patient that we are not going to write any narcotics. Patient keeps being demanding and yelling. Wants to make a complaint against and I. Patient has been informed that due to extensive cures history and all coming from different providers patient needs to establish pain management and we can no longer accommodate her for any narcotics. Patient keeps insisting on getting a specific prescription for Percocet and refuses to get any other medication that will be helping her as she says that she is already on gabapentin and Robaxin are not helping and Motrin does not help her. DISCHARGE: At this time pt. is stable for d/c to home. Will provide printed patient care instructions, and any necessary prescriptions. Care plan and follow up instructions have been discussed with the patient prior to discharge. Last Vital Signs Date Time Temp Pulse Resp B/P (MAP) Pulse Ox O2 Delivery O2 Flow Rate FiO2 05/06/19 19:48 98.1 91 18 124/71 (88) 94 Room Air Disposition: HOME, SELF-CARE Condition: Stable Scripts Ibuprofen* (MOTRIN*) 600 Mg Tablet 600 MG ORAL Q8H PRN for For Pain, #30 TAB 0 Refills Prov: Halie Farris 05/06/19 Patient Instructions: Sciatica, Back Pain, Adult Additional Instructions: Follow-up with your primary doctor and pain management, at this time we cannot give you any controlled substance and narcotics as you keep insisting on getting a narcotic only. You need to be under the care of pain management when that has been the only medication that has been helping you for prolonged time. The law does not allow us to keep writing narcotics when you have not established pain management over 3 months. Halie Farris May 06, 2019 20:17
[2019-05-06 20:45] VITALS: BP 124/71
--- NOTE | 2019-05-06 20:45 | NUR ---
ER DISCHARGE NOTE: Patient is cleared to be discharged per ERMD, pt is aox4, on room air, with stable vital signs. pt was given dc and prescription instructions, pt was able to verbalize understanding, pt id band removed without complications. pt is able to ambulate with steady gait. pt took all belongings.
== END 2019-05-06 20:45 | disposition home or self-care (01) ==
LOC: EMR 20:30
DX: G89.29 Other chronic pain (principal); Z76.5 Malingerer [conscious simulation]; M54.5 Low back pain; E78.00 Pure hypercholesterolemia, unspecified; F41.9 Anxiety disorder, unspecified; E66.01 Morbid (severe) obesity due to excess calories; Z68.43 Body mass index [BMI] 50.0-59.9, adult
CPT/HCPCS: 99282